=== PATIENT | female | born 1935 | race Caucasian/White ===

== ENCOUNTER 2023-01-12 10:21 | Emergency (ER) | payer OTHER ==
[~2023-01-12] VITALS: Ht 167.6 cm; Wt 48.5 kg
[2023-01-12 10:31] VITALS: O2SAT 98
[2023-01-12] MEDS ORDERED: SILVER SULFADIAZINE 1% CREAM 50 GM TP ONE ×2 (11:22→11:30)
[2023-01-12] MEDS ORDERED: SULF473O3 PO (11:29)
[2023-01-12] MEDS ORDERED: SILV50CR32 TP (11:29)
== END 2023-01-12 11:44 | disposition home or self-care (01) ==
LOC: ER 10:21
DX: L03.116 Cellulitis of left lower limb (principal); L97.929 Non-pressure chronic ulcer of unspecified part of left lower leg with unspecified severity; L97.919 Non-pressure chronic ulcer of unspecified part of right lower leg with unspecified severity
CPT/HCPCS: A4663